=== PATIENT | female | born 1965 ===

== ENCOUNTER 2020-05-18 18:54 | Emergency (ER) | payer MEDICAID, SELFPAY ==
--- NOTE | 2020-05-18 19:00 | ED.GENADULT ---
HPI - General Adult General Chief complaint: Skin/Abscess/Foreign Body Stated complaint: bites on arms/ear Time Seen by Provider: 05/18/20 19:00 Source: patient Mode of arrival: ambulatory Limitations: no limitations History of Present Illness HPI narrative: 55-year-old female patient presents to the [facility] with complaints of bee stings to her bilateral arms and right ear. Patient states that about 5:00 this morning they were burning some brush on some family's property and states that her brother lifted up a rug and immediately a lot of be started to swarm out. She states that other people got stung as well however they were concerned because hers welted up a lot more than everyone else's. She states that she did take some Benadryl shortly afterwards and went to bed. Patient denies any chest pain, shortness of breath or trouble swallowing. Related Data Allergies Allergy/AdvReac Type Severity Reaction Status Date / Time No Known Allergies Allergy Verified 05/18/20 19:13 Review of Systems Review of Systems: Narrative: CONSTITUTIONAL: Denies fever, chills, or sweats. EYES: Denies visual changes, redness, or discharge. ENT: Denies rhinorrhea, congestion, sore throat, or otalgia. CARDIOVASCULAR: Denies chest pain, palpitations, or edema. RESPIRATORY: Denies cough or dyspnea. GASTROINTESTINAL: Denies abdominal pain, nausea, vomiting, or diarrhea. GENITOURINARY: Denies dysuria or hematuria. SKIN: Denies rash or itching. Positive insect stings to bilateral arms and right ear MUSCULOSKELETAL: Denies back pain, joint pain, or myalgia. NEUROLOGIC: Denies headache, numbness, or weakness. PSYCHIATRIC: Denies anxiety or depression. PMFSH Comments At the time of my signature I agree with nursing past medical history, surgical, social, and family history. There is no relevant family history pertinent to the presenting complaint. Exam Narrative: Exam Narrative: GENERAL: Well-appearing, well-nourished, and in no acute distress. HEAD: Normocephalic, atraumatic. EYES: PERRLA and EOMI. ENT: Nares clear, no rhinorrhea or epistaxis. Mucous membranes moist. Patient has small insect sting to the auricle of the Right ear. No open wounds or drainage noted. NECK: Supple. No lymphadenopathy CHEST: Clear to auscultation. No respiratory distress. HEART: Regular rate and rhythm. No murmur heard. Normal peripheral pulses. ABDOMEN: Soft, nontender, nondistended, normal active bowel sounds. EXTREMITIES: Normal range of motion. No edema. SKIN: Warm, dry, no rash. Patient has 1 welts of the left forearm measuring approximately 5 x 5 area. No warmth to the touch. It is slightly swollen with erythema. No discharge noted. There is another 2 welts noted to the right forearm that looks very similar with erythema, no warmth, slightly raised. Does complain of itchiness. NEURO: No focal deficits. Alert and oriented x3. Course Vital Signs Vital signs: Vital Signs Temperature 36.8 C 05/18/20 19:05 Pulse Rate 84 05/18/20 19:05 Respiratory Rate 18 05/18/20 19:05 Blood Pressure 137/74 05/18/20 19:05 Pulse Oximetry 99 05/18/20 19:05 Temperature 36.8 C 05/18/20 19:05 Pulse Rate 84 05/18/20 19:05 Respiratory Rate 18 05/18/20 19:05 Blood Pressure 137/74 05/18/20 19:05 Pulse Oximetry 99 05/18/20 19:05 Vital signs reviewed. Medical Decision Making Differential Diagnosis Differential Diagnosis: Differential diagnosis: Contact dermatitis, poison misa, poison sumac, psoriasis, eczema, allergic reaction, drug reaction, scabies, tinea syphilis, lung disease, viral exanthema, pityriasis, erythema multiforme. Abscess, cellulitis, hidradenitis, laceration, puncture wound. Discussed with patient that we will discharge her home with antihistamine to help with the itching that she can take along with a topical steroid to help with the itching and reaction of the sting. Discussed with patient if she develops chest pain, shortness of
[2020-05-18 19:05] VITALS: BP 137/74; PULSE 84; RESP 18; TEMP 36.8; O2SAT 99
== END 2020-05-18 19:20 | disposition home or self-care (01) ==
PROVIDERS: Emergency Provider Nurse Practitioner Family
DX: S50.862A Insect bite (nonvenomous) of left forearm, initial encounter (principal); W57.XXXA Bitten or stung by nonvenomous insect and other nonvenomous arthropods, initial encounter
CPT/HCPCS: 99213; G0463